=== PATIENT | male | born 1990 | race Caucasian/White ===

== ENCOUNTER 2017-06-21 10:35 | Emergency (ER) | payer MEDICARE, OTHER ==
[~2017-06-21] VITALS: Ht 177.8 cm; Wt 115.2 kg
[~2017-06-21 10:35] MED LIST: PRIMIDONE50 MG PO
--- OUTSIDE RECORDS SUMMARY | 2017-06-21 12:09 | XMS ---
Demographics + + + | Address | [address] | | | [place] [address] | + + + | Preferred Language | Unknown | + + + | Marital Status | Unknown | + + + | Pentecostal Affiliation | Unknown | + + + | Race | Unknown | + + + | Ethnic Group | Unknown | + + + Author + + + | Author | [facility] | + + + | Organization | [facility] | + + + | Address | [address] | | | [place] [address] | + + + | Phone | | + + + Care Team Providers + + + + | Care Envelope Folding Machine Adjuster Name | Role | Phone | + + + + Unavailable | Unavailable | + + + + PROBLEMS +---------+ + + +--------+ + + | Type | Condition | ICD9-CM | [id number] | Onset | Condition | SNOMED | | | | Code | Code | Dates | Status | Code | +---------+ + + +--------+ + + | Problem | Lactose | E73.9 | | | Active | [id number] | | | intoleranc | | | | | | | | e | | | | | | +---------+ + + +--------+ + + | Problem | Helicobact | A04.8 | | | Active | [id number] | | | er pylori | | | | | | | | (H. | | | | | | | | pylori) | | | | | | +---------+ + + +--------+ + + | Problem | H. pylori | A04.8 | | | Active | [id number] | | | infection | | | | | | +---------+ + + +--------+ + + | Problem | Depression | | F41.8 | | Active | [id number] | | | with | | | | | | | | anxiety | | | | | | +---------+ + + +--------+ + + | Problem | Obstructiv | G47.33 | | | Active | 84178239 | | | e sleep | | | | | | | | apnea | | | | | | +---------+ + + +--------+ + + | Problem | Tremors of | R25.1 | | | Active | [id number] | | | nervous | | | | | | | | system | | | | | | +---------+ + + +--------+ + + | Problem | Obesity | E66.9 | | | Active | [id number] | | | (BMI | | | | | | | | 35.0-39.9 | | | | | | | | without | | | | | | | | comorbidit | | | | | | | | y) | | | | | | +---------+ + + +--------+ + + | Problem | Irritable | | K58.0 | | Active | [id number] | | | bowel | | | | | | | | syndrome | | | | | | | | with | | | | | | | | diarrhea | | | | | | +---------+ + + +--------+ + + | Problem | Chronic | K52.9 | | | Active | [id number] | | | diarrhea | | | | | | +---------+ + + +--------+ + + ALLERGIES + + + + +--------+ | Substance | Reaction | Event Type | Date | Status | + + + + +--------+ | Dairy | Unknown | Non Drug | March, | Active | | | | Allergy | | | + + + + +--------+ SOCIAL HISTORY No smoking Hx information available PLAN OF CARE + +---------+ | Activity | Details | + +---------+ +---+ | | +---+ + + + | Follow Up | 2 Weeks Reason:null | + + + VITAL SIGNS + + + + | Height | 70 in | 2017-04-19 | + + + + | Weight | 257 lbs | 2017-04-19 | + + + + | BMI | 36.87 kg/m2 | 2017-04-19 | + + + + | Temperature | 98.0 degrees Fahrenheit | 2017-04-19 | + + + + | Heart Rate | 78 /min | 2017-04-19 | + + + + | Blood pressure systolic | 128 mm Hg | 2017-04-19 | + + + + | Blood pressure diastolic | 90 mm Hg | 2017-04-19 | + + + + MEDICATIONS + + + + + + + +--------+ | Medicati | Instruct | Dosage | Frequenc | Start | End Date | Duration | Status | | on | ions | | y | Date | | | | + + + + + + + +--------+ | Dicyclom | Orally | 1 | 6h | | | 30 | Active | | ine HCl | Four | capsule | | | | | | | 10MG | times a | | | | | | | | | day | | | | | | | + + + + + + + +--------+ | Lexapro | Orally | 1 tablet | 24h | 17 Apr, | | 30 | Active | | 20 MG | Once a | | | 2017 | | day(s) | | | | day | | | | | | | + + + + + + + +--------+ | Primidon | Orally | 1 tablet | 8h | | | 30 | Active | | e 50 mg | Three | | | | | day(s) | | | | times a | | | | | | | | | day | | | | | | | + + + + + + + +--------+ RESULTS + +--------+ + + | Name | Result | Date | Reference Range | + +--------+ + + | Comprehensive | | 2017-04-19 | | | Metabolic Panel | | | | + +--------+ + + | Amylase | | 2017-04-19 | | + +--------+ + + | AMYLASE | | | | + +--------+ + + | Lipase, Serum or | | 2017-04-19 | | | Plasma | | | | + +--------+ + + | LIPASE, SERUM OR | | | | | PLASMA | | | | + +--------+ + + | CBC with | | 2017-04-19 | | | Differential Count | | | | + +--------+ + + | X ray : Abdominal | | 2017-04-19 | | | KUB | | | | + +--------+ + + | C difficile Toxins | | | | | A+B, EIA | | | | + +--------+ + + | C difficile Toxins | | | | | A+B, EIA | | | | + +--------+ + + | H Pylori Stool Test | | 2017-04-22 | | | #[id number] | | | | + +--------+ + + PROCEDURES + + + + + | Procedure | Date Ordered | Related Diagnosis | Body Site | + + + + + | Office Visit, Est | April 19, 2017 | | | | Pt., Level 4 | | | | + + + + + | [facility] MED/CURRENT | April 19, 2017 | | | | MED MERGE | | | | + + + + + IMMUNIZATIONS No Known Immunizations"
[2017-06-21] MEDS ORDERED: LEXAPRO20 MG PO (12:11)
[2017-06-21] MEDS ORDERED: DICYCLOMINE HCL10 MG PO (12:11)
--- OUTSIDE RECORDS SUMMARY | 2017-06-21 12:11 | XMS ---
Demographics + + + | Address | [address] | | | [place] [address] | + + + | Preferred Language | Unknown | + + + | Marital Status | Unknown | + + + | Religion Affiliation | Unknown | + + + | Race | Unknown | + + + | Ethnic Group | Unknown | + + + Author + + + | Author | [facility] | + + + | Organization | [facility] | + + + | Address | [address] | | | [place] [address] | + + + | Phone | | + + + Care Team Providers + + + + | Care Emergency Communications Dispatcher Name | Role | Phone | + + + + Unavailable | Unavailable | + + + + PROBLEMS +---------+ + + +--------+ + + | Type | Condition | ICD9-CM | [id number] | Onset | Condition | SNOMED | | | | Code | Code | Dates | Status | Code | +---------+ + + +--------+ + + | Problem | Lactose | E73.9 | | | Active | [id number] | | | intoleranc | | | | | | | | e | | | | | | +---------+ + + +--------+ + + | Problem | Helicobact | A04.8 | | | Active | [id number] | | | er pylori | | | | | | | | (H. | | | | | | | | pylori) | | | | | | +---------+ + + +--------+ + + | Problem | H. pylori | A04.8 | | | Active | [id number] | | | infection | | | | | | +---------+ + + +--------+ + + | Problem | Depression | | F41.8 | | Active | [id number] | | | with | | | | | | | | anxiety | | | | | | +---------+ + + +--------+ + + | Problem | Obstructiv | G47.33 | | | Active | 91560412 | | | e sleep | | | | | | | | apnea | | | | | | +---------+ + + +--------+ + + | Problem | Tremors of | R25.1 | | | Active | [id number] | | | nervous | | | | | | | | system | | | | | | +---------+ + + +--------+ + + | Problem | Obesity | E66.9 | | | Active | [id number] | | | (BMI | | | | | | | | 35.0-39.9 | | | | | | | | without | | | | | | | | comorbidit | | | | | | | | y) | | | | | | +---------+ + + +--------+ + + | Problem | Irritable | | K58.0 | | Active | [id number] | | | bowel | | | | | | | | syndrome | | | | | | | | with | | | | | | | | diarrhea | | | | | | +---------+ + + +--------+ + + | Problem | Chronic | K52.9 | | | Active | [id number] | | | diarrhea | | | | | | +---------+ + + +--------+ + + ALLERGIES + + + + +--------+ | Substance | Reaction | Event Type | Date | Status | + + + + +--------+ | Dairy | Unknown | Non Drug | Apr, | Active | | | | Allergy | | | + + + + +--------+ SOCIAL HISTORY No smoking Hx information available PLAN OF CARE + +---------+ | Activity | Details | + +---------+ +---+ | | +---+ + + + | Follow Up | 2 Months Reason:null | + + + VITAL SIGNS + + + + | Height | 70 in | 2017-05-05 | + + + + | Weight | 257 lbs | 2017-05-05 | + + + + | BMI | 36.87 kg/m2 | 2017-05-05 | + + + + | Temperature | 97.6 degrees Fahrenheit | 2017-05-05 | + + + + | Heart Rate | 86 /min | 2017-05-05 | + + + + | Blood pressure systolic | 128 mm Hg | 2017-05-05 | + + + + | Blood pressure diastolic | 84 mm Hg | 2017-05-05 | + + + + MEDICATIONS + [...] Orally | 1 tablet | 24h | Feb, | | 30 | Active | | 20 MG | Once a | | | 2017 | | day(s) | | | | day | | | | | | | + + + + + + + +--------+ RESULTS No Results PROCEDURES + + + + + | Procedure | Date Ordered | Related Diagnosis | Body Site | + + + + + | Office Visit, Est | May 05, 2017 | | | | Pt., Level 3 | | | | + + + + + | [facility] MED/CURRENT | May 05, 2017 | | | | MED MERGE | | | | + + + + + IMMUNIZATIONS No Known Immunizations"
--- OUTSIDE RECORDS SUMMARY | 2017-06-21 12:11 | XMS ---
Demographics + + + | Address | [address] | | | [place] [address] | + + + | Preferred Language | Unknown | + + + | Marital Status | Unknown | + + + | Worship Affiliation | Unknown | + + + | Race | Unknown | + + + | Ethnic Group | Unknown | + + + Author + + + | Author | [facility] | + + + | Organization | [facility] | + + + | Address | [address] | | | [place] [address] | + + + | Phone | | + + + Care Team Providers + + + + | Care Sports Anchor Name | Role | Phone | + + + + Unavailable | Unavailable | + + + + PROBLEMS +---------+ + + +--------+ + + | Type | Condition | ICD9-CM | [id number] | Onset | Condition | SNOMED | | | | Code | Code | Dates | Status | Code | +---------+ + + +--------+ + + | Problem | Lactose | E73.9 | | | Active | [id number] | | | intoleranc | | | | | | | | e | | | | | | +---------+ + + +--------+ + + | Problem | Helicobact | A04.8 | | | Active | [id number] | | | er pylori | | | | | | | | (H. | | | | | | | | pylori) | | | | | | +---------+ + + +--------+ + + | Problem | H. pylori | A04.8 | | | Active | [id number] | | | infection | | | | | | +---------+ + + +--------+ + + | Problem | Depression | | F41.8 | | Active | [id number] | | | with | | | | | | | | anxiety | | | | | | +---------+ + + +--------+ + + | Problem | Obstructiv | G47.33 | | | Active | [id number] | | | e sleep | | | | | | | | apnea | | | | | | +---------+ + + +--------+ + + | Problem | Tremors of | R25.1 | | | Active | [id number] | | | nervous | | | | | | | | system | | | | | | +---------+ + + +--------+ + + | Problem | Obesity | E66.9 | | | Active | [id number] | | | (BMI | | | | | | | | 35.0-39.9 | | | | | | | | without | | | | | | | | comorbidit | | | | | | | | y) | | | | | | +---------+ + + +--------+ + + | Problem | Irritable | | K58.0 | | Active | [id number] | | | bowel | | | | | | | | syndrome | | | | | | | | with | | | | | | | | diarrhea | | | | | | +---------+ + + +--------+ + + | Problem | Chronic | K52.9 | | | Active | [id number] | | | diarrhea | | | | | | +---------+ + + +--------+ + + ALLERGIES Unknown Allergies SOCIAL HISTORY No smoking Hx information available PLAN OF CARE VITAL SIGNS MEDICATIONS Unknown Medications RESULTS No Results PROCEDURES No Known procedures IMMUNIZATIONS No Known Immunizations"
[2017-06-21] MEDS ORDERED: ANUSOL-HC25 MG PR (13:26)
== END 2017-06-21 13:32 | disposition home or self-care (01) ==
LOC: ED 10:35
DX: K62.89 Other specified diseases of anus and rectum (principal); G80.9 Cerebral palsy, unspecified; F84.0 Autistic disorder; Z87.442 Personal history of urinary calculi; Z79.01 Long term (current) use of anticoagulants; Z79.899 Other long term (current) drug therapy
CPT/HCPCS: 85025; 99284